=== PATIENT | male | born 1985 | race Caucasian/White ===

== ENCOUNTER 2017-09-29 09:29 | Emergency (ER) | payer OTHER ==
[~2017-09-29] VITALS: Ht 188 cm; Wt 117.9 kg
[2017-09-29] MEDS ORDERED: BENZ100A PO (10:14)
[2017-09-29] MEDS ORDERED: Zofran Odt4 MG SL (10:14)
== END 2017-09-29 10:23 | disposition home or self-care (01) ==
LOC: ER 09:29
DX: J06.9 Acute upper respiratory infection, unspecified (principal)
CPT/HCPCS: 99283

== ENCOUNTER 2019-02-27 21:16 | Emergency (ER) | payer OTHER ==
[~2019-02-27] VITALS: Ht 188 cm; Wt 158.8 kg
[~2019-02-27 21:16] MED LIST: BENZ100A PO; Zofran Odt4 MG SL
== END 2019-02-27 23:10 | disposition home or self-care (01) ==
LOC: ER 21:16
DX: S46.012A Strain of muscle(s) and tendon(s) of the rotator cuff of left shoulder, initial encounter (principal); V48.4XXA Person boarding or alighting a car injured in noncollision transport accident, initial encounter
CPT/HCPCS: 99282

== ENCOUNTER 2019-03-29 22:26 | Emergency (ER) | payer OTHER ==
[~2019-03-29] VITALS: Ht 188 cm; Wt 170.1 kg
[2019-03-30] MEDS ORDERED: Cephalexin500 M1 PO (00:08)
== END 2019-03-30 00:17 | disposition home or self-care (01) ==
LOC: ER 22:26
DX: L03.311 Cellulitis of abdominal wall (principal); R03.0 Elevated blood-pressure reading, without diagnosis of hypertension
CPT/HCPCS: 99282; Q0163

== ENCOUNTER → 2019-07-10 | Outpatient (CLI) | payer OTHER ==
[~2019-07-10] MED LIST changes: +Cephalexin500 M1 PO
== END | disposition home or self-care (01) ==
LOC: PLD 13:04 → LAB SHORT 13:04
DX: L82.1 Other seborrheic keratosis (principal)
CPT/HCPCS: 88305

== ENCOUNTER 2020-08-24 09:47 | Emergency (ER) | payer SELFPAY ==
[~2020-08-24] VITALS: Ht 188 cm; Wt 157.8 kg
[2020-08-24] MEDS ORDERED: ZYRTEC10 M2 PO (10:01)
[2020-08-24] MEDS ORDERED: Crutch1 EACH XX (10:29)
[2020-08-24] MEDS ORDERED: NAPR500 PO (10:29)
== END 2020-08-24 11:00 | disposition home or self-care (01) ==
LOC: ER 09:47
DX: S93.401A Sprain of unspecified ligament of right ankle, initial encounter (principal); Z79.899 Other long term (current) drug therapy; W17.2XXA Fall into hole, initial encounter
CPT/HCPCS: 29515; 73610; 99283-25